=== PATIENT | female | born 1950 | race Caucasian/White ===

== ENCOUNTER 2018-01-25 11:09 | Emergency (ER) | payer OTHER ==
[~2018-01-25] VITALS: Ht 152.4 cm; Wt 70.3 kg
[~2018-01-25 11:09] MED LIST: COZAAR50 MG; SYNTHROID137 MCG
== END 2018-01-25 13:14 | disposition home or self-care (01) ==
LOC: ER 11:09
DX: L08.82 Omphalitis not of newborn (principal); B96.4 Proteus (mirabilis) (morganii) as the cause of diseases classified elsewhere; B96.1 Klebsiella pneumoniae [K. pneumoniae] as the cause of diseases classified elsewhere; B96.89 Other specified bacterial agents as the cause of diseases classified elsewhere